=== PATIENT | female | born 2000 | race Caucasian/White ===

== ENCOUNTER 2018-06-20 11:59 | Emergency (ER) | payer OTHER, SELFPAY ==
[2018-06-20 12:53] LABS: Absolute Lymphocytes (CBC) 1.9 K/uL (0.7-4.9); Absolute Monocytes 0.3 K/uL (0.1-1.3); Absolute Neutrophil 2.8 K/uL (1.8-8.0); Basophils % 0.7 % (0-1.3); Eosinophils % 2.4 % (0-4.4); Hematocrit 39.4 % (36.0-45.0); Lymphocytes % 35.9 % (15.3-44.8); MPV 9.6 fL (7.6-11.3); Monocytes % 6.2 % (3.3-12.3); RBC Red Blood Cell Count 5.07 M/uL (3.86-4.86)
[2018-06-20 13:14] LABS: ALT/SGPT 12 U/L (12-78); AST/SGOT 13 U/L (15-37); Albumin 3.8 g/dL (3.4-5.0); Alkaline Phosphatase 58 U/L (45-117); BUN Blood Urea Nitrogen 8 mg/dL (7-18); Bicarbonate 24 mmol/L (21-32); Bilirubin Direct 0.1 mg/dL (0-0.2); Bilirubin Total 0.4 mg/dL (0.2-1.0); Glucose Level 64 mg/dL (74-106); Lipase 233 U/L (73-393); Potassium 3.4 mmol/L (3.5-5.1); Protein, Total 7.1 g/dL (6.4-8.2); Sodium Level 140 mmol/L (136-145)
--- NOTE | 2018-06-20 13:49 | RAD REPORT ---
EXAM DESCRIPTION: US - Abdomen Exam Limited - 06/20/2018 1:31 pm CLINICAL HISTORY: Abdominal pain Preliminary findings provided at the time of the study. COMPARISON: CT study December 2014 FINDINGS: Gallbladder is partially contracted. No gallstones, wall thickening or pericholecystic flu id. Common bile duct is normal with no common duct stone identified. Imaged portions of the spleen ar e unremarkable. No ascites or lymphadenopathy in the right IMPRESSION: No stones or sludge identified in a partially contracted gallbladder. No biliary tree abnormality.
[2018-06-20 14:13] LABS: Urine Blood NEGATIVE (NEG); Urine Glucose NEGATIVE (NEG); Urine Protein NEGATIVE (NEG); Urine Specific Gravity 1.015 (1.005-1.030); Urine pH 6.5 (5.0-7.0)
[2018-06-20 14:25] LABS: Urine Amorphous Sediment 2+ /HPF (NONE SEEN); Urine Bacteria <20 /HPF (<20); Urine Culture Reflex Order NOT NEEDED; Urine RBC <5 /HPF (NONE SEEN)
--- NOTE | 2018-06-20 14:45 | RAD REPORT ---
EXAM DESCRIPTION: CT - Abdomen Pelvis W Contrast - 06/20/2018 2:23 pm CLINICAL HISTORY: Epigastric pain, right upper quadrant pain COMPARISON: None. TECHNIQUE: Biphasic, helical CT imaging of the abdomen and pelvis was performed following 100 ml non -ionic IV contrast. Oral contrast was given. All CT scans are performed using dose optimization technique as appropriate and may include automated exposure control or mA/KV adjustment according to patient size. FINDINGS: No suspicious findings in the lung bases. No pancreatic mass or peripancreatic inflammatory stranding. Liver and spleen show no suspicious findings. Gallbladder is partially contracted. Gallstones can be occult on CT imaging. Earlier ultrasound study showed no stones or sludge. No biliary tree dilatation . Symmetric renal function is seen with no hydronephrosis or suspicious renal mass. No pyelonephritis o r acute parenchymal process. No bladder abnormalities. No adrenal abnormality seen. Uterus and ovarie s are normal for age. No dilated bowel loops or bowel wall thickening. Appendix is normal. Oral contrast has reached the di stal rectum. No free air, free fluid or inflammatory stranding. No hernia, mass or bulky lymphadenop athy. No suspicious bony findings. IMPRESSION: Contrast enhanced CT abdomen and pelvis showing no significant or suspicious finding.
--- NOTE | 2018-06-20 14:50 | ER ---
Nurse's Notes [facility] Name: Darby Garza Age: 18 yrs Sex: Female : 2000 Arrival Date: 06/20/2018 Time: 12:04 Bed 18 Private MD: Diagnosis: Upper abdominal pain, unspecified Presentation: 06/20 12:07 Presenting complaint: Patient states: epigastric pain at times radiates to RUQ x 5 sv days, c/o nausea, decreased appetite, stool is bright yellow. Transition of care: patient was not received from another setting of care. Onset of symptoms was June 15, 2018. Care prior to arrival: None. 12:07 Method Of Arrival: Ambulatory sv 12:07 Acuity: REYNALDO 3 sv 12:12 Risk Assessment: Do you want to hurt yourself or someone else? Patient reports no tw2 desire to harm self or others. Initial Sepsis Screen: Does the patient meet any 2 criteria? No. Patient's initial sepsis screen is negative. Does the patient have a suspected source of infection? No. Patient's initial sepsis screen is negative. TURNER OFF: 15:02 LMP N/A - . tw2 Historical: - Allergies: 12:08 No Known Allergies; sv - Home Meds: 12:08 control [Active]; sv - PMHx: 12:08 None; sv - PSHx: 12:08 Adenoids; Ear Tubes; sv - Immunization history:: Adult Immunizations up to date. - Social history:: Smoking status: Patient/guardian denies using tobacco. - Ebola Screening: : No symptoms or risks identified at this time. Screenin:14 Abuse screen: Denies threats or abuse. Nutritional screening: No deficits noted. tw2 Tuberculosis screening: No symptoms or risk factors identified. Fall Risk None identified. Assessment: 12:16 Reassessment: provider EDITH Garibay at bedside at this time. General: Appears in no tw2 apparent distress. slender, well groomed, Behavior is calm, cooperative, appropriate for age. Pain: Complains of pain in epigastric area and right upper quadrant. Neuro: Level of Consciousness is awake, alert, obeys commands, Oriented to person, place, time, situation. Cardiovascular: Heart tones S1 S2 Capillary refill < 3 seconds Patient's skin is warm and dry. Respiratory: Airway is patent Respiratory effort is even, unlabored, Respiratory pattern is regular, symmetrical, Breath sounds are clear bilaterally. GI: Bowel sounds present X 4 quads. Abd is soft X 4 quads Reports upper abdominal pain, Patient currently denies abdominal pain, nausea. : No signs and/or symptoms were reported regarding the genitourinary system. EENT: No signs and/or symptoms were reported regarding the EENT system. Derm: No signs and/or symptoms reported regarding the dermatologic system. Musculoskeletal: Range of motion: intact in all extremities. 13:26 Reassessment: Patient appears in no apparent distress at this time. No changes from tw2 previously documented assessment. Patient and/or family updated on plan of care and expected duration. Pain level reassessed. Patient is alert, oriented x 3, equal unlabored respirations, skin warm/dry/pink. 14:37 Reassessment: Patient appears in no apparent distress at this time. No changes from tw2 previously documented assessment. Patient and/or family updated on plan of care and expected duration. Pain level reassessed. Patient is alert, oriented x 3, equal unlabored respirations, skin warm/dry/pink. 15:02 Reassessment: Patient appears in no apparent distress at this time. No changes from tw2 previously documented assessment. Patient and/or family updated on plan of care and expected duration. Pain level reassessed. Patient is alert, oriented x 3, equal unlabored respirations, skin warm/dry/pink. Vital Signs: 12:08 BP 128 / 84; Pulse 79; Resp 16; Temp 98.1; Pulse Ox 100% ; Weight 45.36 kg; Height 5 sv ft. 7 in. (170.18 cm); Pain 3/10; 13:26 BP 121 / 84; Pulse 65; Resp 17; Pulse Ox 100% on R/A; tw2 14:36 BP 124 / 79; Pulse 62; Resp 17; Pulse Ox 99% on R/A; tw2 12:08 Body Mass Index 15.66 (45.36 kg, 170.18 cm) sv ED Course: 12:04 Patient arrived in ED. mr 12:06 Judy Wells FNP-C is PHCP. kb 12:06 Josue Sykes MD is Attending Physician. kb 12:08 Triage completed. sv 12:09 Arm band placed on. sv 12:11 Gilmore, Renee, RN is Primary Nurse. tw2 12:11 Bed in low position. Call light in reach. Adult w/ patient. Pulse ox on. NIBP on. tw2 12:37 Initial lab(s) drawn, by in, sent to lab. Urine collected: clean catch specimen, clear. mh5 Inserted saline lock: 20 gauge in right antecubital area, using aseptic technique. Blood collected. 12:38 Urine --Ancillary (enter results) Sent. mh5 12:38 Urine Dipstick--Ancillary (enter results) Sent. 5 12:38 Urine Microscopic Only Sent. 5 12:38 Basic Metabolic Panel Sent. 5 12:38 CBC with Diff Sent. 5 12:38 Hepatic Function Sent. 5 12:38 Lipase Sent. 5 12:56 US Abdomen Limited In Process Unspecified. EDMS 14:18 CT completed. Patient tolerated procedure well. Patient moved to CT via wheelchair. Patient moved back from CT. 14:23 CT Abd/Pelvis - W/Contrast In Process Unspecified. EDMS 15:01 No provider procedures requiring assistance completed. IV discontinued, intact, tw2 bleeding controlled, No redness/swelling at site. Pressure dressing applied. Administered Medications: 14:56 Not Given (Physician Discretion): GI Cocktail without - (Maalox Suspension 30 kb ml, Lidocaine Liquid 2 % 15 ml) PO once Outcome: 14:49 Discharge ordered by . kb 15:02 Discharged to home ambulatory, with family. tw2 15:02 Condition: stable 15:02 Discharge instructions given to patient, family, Instructed on discharge instructions, follow up and referral plans. no drinking with medication, no driving heavy equipment, medication usage, Demonstrated understanding of instructions, follow-up care, medications, Prescriptions given X 2. 15:02 Patient left the ED. tw2 Signatures: Dispatcher [employer] EDMS Judy Wells, Renetta Donnelly RN Nel Castillo Susan sj Wise, Tara, RN SELENA 2 Ayanna Tam [facility]
--- NOTE | 2018-06-20 14:50 | EDPHYS ---
Physician Documentation [facility] Name: Darby Garza Age: 18 yrs Sex: Female : 2000 Arrival Date: 06/20/2018 Time: 12:04 Bed 18 Private MD: ED Physician Josue Sykes HPI: 06/20 14:28 This 18 yrs old Female presents to ER via Ambulatory with complaints of kb Abdominal Pain, Nausea. 14:28 The patient presents with abdominal pain in the epigastric area, in the right upper kb quadrant. Onset: The symptoms/episode began/occurred 5 day(s) ago. The symptoms do not radiate. Associated signs and symptoms: Pertinent positives: nausea, shortness of breath, decreased appetite. The symptoms are described as constant. Modifying factors: The symptoms are alleviated by nothing, the symptoms are aggravated by food. Severity of pain: At its worst the pain was moderate in the emergency department the pain is unchanged. The patient has not experienced similar symptoms in the past. The patient has not recently seen a physician. Pt reports constant RUQ pain that started 5 days ago. Pt thought it was just from stress because "its like that feeling you get when someone tells you they need to talk to you." Reports she had a BM today that was yellow so she decided to come get checked. CORE PLACER: 15:02 LMP N/A - . tw2 Historical: - Allergies: 12:08 No Known Allergies; sv - Home Meds: 12:08 control [Active]; sv - PMHx: 12:08 None; sv - PSHx: 12:08 Adenoids; Ear Tubes; sv - Immunization history:: Adult Immunizations up to date. - Social history:: Smoking status: Patient/guardian denies using tobacco. - Ebola Screening: : No symptoms or risks identified at this time. ROS: 14:27 Constitutional: Negative for fever, chills, and weight loss, ENT: Negative for injury, kb pain, and discharge, Neck: Negative for injury, pain, and swelling, Cardiovascular: Negative for chest pain, palpitations, and edema, Respiratory: Negative for shortness of breath, cough, wheezing, and pleuritic chest pain, Back: Negative for injury and pain, : Negative for injury, bleeding, discharge, and swelling, MS/Extremity: Negative for injury and deformity, Skin: Negative for injury, rash, and discoloration, Neuro: Negative for headache, weakness, numbness, tingling, and seizure. 14:27 Abdomen/GI: Positive for abdominal pain, nausea, Negative for vomiting, diarrhea, constipation, abdominal cramps, abdominal distension, anorexia, dysphagia, hematemesis, black/tarry stool, rectal pain, rectal bleeding, bowel incontinence, flatulence. Exam: 14:27 Constitutional: This is a well developed, well nourished patient who is awake, alert, kb and in no acute distress. Head/Face: Normocephalic, atraumatic. Chest/axilla: Normal chest wall appearance and motion. Nontender with no deformity. No lesions are appreciated. Cardiovascular: Regular rate and rhythm with a normal S1 and S2. No gallops, murmurs, or rubs. Normal PMI, no JVD. No pulse deficits. Respiratory: Lungs have equal breath sounds bilaterally, clear to auscultation and percussion. No rales, rhonchi or wheezes noted. No increased work of breathing, no retractions or nasal flaring. Back: No spinal tenderness. No costovertebral tenderness. Full range of motion. Skin: Warm, dry with normal turgor. Normal color with no rashes, no lesions, and no evidence of cellulitis. MS/ Extremity: Pulses equal, no cyanosis. Neurovascular intact. Full, normal range of motion. Neuro: Awake and alert, GCS 15, oriented to person, place, time, and situation. Cranial nerves II-XII grossly intact. Motor strength 5/5 in all extremities. Sensory grossly intact. Cerebellar exam normal. Normal gait. 14:27 Abdomen/GI: Inspection: abdomen appears normal, Bowel sounds: normal, in all quadrants, Palpation: soft, in all quadrants, moderate abdominal tenderness, in the right upper quadrant and right lower quadrant. Vital Signs: 12:08 BP 128 / 84; Pulse 79; Resp 16; Temp 98.1; Pulse Ox 100% ; Weight 45.36 kg; Height 5 sv ft. 7 in. (170.18 cm); Pain 3/10; 13:26 BP 121 / 84; Pulse 65; Resp 17; Pulse Ox 100% on R/A; tw2 14:36 BP 124 / 79; Pulse 62; Resp 17; Pulse Ox 99% on R/A; tw2 12:08 Body Mass Index 15.66 (45.36 kg, 170.18 cm) sv MDM: 12:11 Patient medically screened. kb 14:26 Data reviewed: vital signs, nurses notes. Data interpreted: Pulse oximetry: on room air kb is 100 %. Interpretation: normal. 14:48 Counseling: I had a detailed discussion with the patient and/or guardian regarding: the kb historical points, exam findings, and any diagnostic results supporting the discharge/admit diagnosis, lab results, radiology results, the need for outpatient follow up, a family practitioner, to return to the emergency department if symptoms worsen or persist or if there are any questions or concerns that arise at home. 06/20 12:20 Order name: Basic Metabolic Panel; Complete Time: 13:14 kb 06/20 12:20 Order name: CBC with Diff; Complete Time: 13:00 kb 06/20 12:20 Order name: Hepatic Function; Complete Time: 13:14 kb 06/20 12:20 Order name: Lipase; Complete Time: 13:14 kb 06/20 12:20 Order name: Urine Microscopic Only; Complete Time: 14:26 kb 06/20 12:30 Order name: Urine Dipstick--Ancillary (enter results); Complete Time: 14:19 bd 06/20 12:20 Order name: IV Saline Lock; Complete Time: 12:38 kb 06/20 12:20 Order name: Labs collected and sent; Complete Time: 12:38 kb 06/20 12:20 Order name: US Abdomen Limited; Complete Time: 13:52 kb 06/20 12:20 Order name: Urine Test (obtain specimen); Complete Time: 12:26 kb 06/20 12:20 Order name: Urine Dipstick-Ancillary (obtain specimen); Complete Time: 12:26 kb 06/20 12:20 Order name: CT Abd/Pelvis - W/Contrast; Complete Time: 14:46 kb 06/20 12:30 Order name: Urine --Ancillary (enter results); Complete Time: 14:19 bd Administered Medications: 14:56 Not Given (Physician Discretion): GI Cocktail without - (Maalox Suspension 30 kb ml, Lidocaine Liquid 2 % 15 ml) PO once Disposition: 15:18 Co-signature as Attending Physician, Josue Sykes MD I agree with the assessment and live plan of care. Disposition: 06/20/18 14:49 Discharged to Home. Impression: Upper abdominal pain, unspecified. - Condition is Stable. - Discharge Instructions: Abdominal Pain, Adult, [id number]. - Prescriptions for Bentyl 20 mg Oral Tablet - take 1 tablet by ORAL route every 6 hours As needed; 20 tablet. Zofran 4 mg Oral Tablet - take 1 tablet by ORAL route every 6 hours As needed; 20 tablet. - Medication Reconciliation Form, Thank You Letter form. - Follow up: Emergency Department; When: As needed; Reason: Worsening of condition. Follow up: Private Physician; When: 2 - 3 days; Reason: Recheck today's complaints, Continuance of care, Re-evaluation by your physician. Signatures: Dispatcher [employer] EDJudy Wagner, Renetta Donnelly, RN RN Josue Sin MD MD cha Wise, Tara, RN RN tw2 Corrections: (The following items were deleted from the chart) 15:02 14:49 06/20/2018 14:49 Discharged to Home. Impression: Upper abdominal pain, tw2 unspecified. Condition is Stable. Forms are Medication Reconciliation Form, Thank You Letter, Antibiotic Education, Prescription Opioid Use. Follow up: Emergency Department; When: As needed; Reason: Worsening of condition. Follow up: Private Physician; When: 2 - 3 days; Reason: Recheck today's complaints, Continuance of care, Re-evaluation by your physician. kb
[2018-06-20] MEDS ORDERED: LIDOCAINE VISCOUS 2% SOLN 15 ML UDC ONE (15:05)
[2018-06-20] MEDS ORDERED: MAGNE/ALUM HYDROXD 30 ML UCUP ONE (15:05)
[2018-06-20 15:49] VITALS: TEMP 98.1
[2018-06-20 15:50] VITALS: BP 124/79; O2SAT 99
== END 2018-06-20 15:02 | disposition home or self-care (01) ==
LOC: ER 11:59
DX: R10.11 Right upper quadrant pain (principal)
CPT/HCPCS: 36415; 74177; 76705; 80048; 80076; 81003; 81015; 81025; 83690; 85025; 99284; Q9967